=== PATIENT | female | born 1955 | race Caucasian/White ===

== ENCOUNTER 2016-12-07 10:46 | Outpatient (CLI) | payer OTHER | END 2016-12-07 10:47 | disposition home or self-care (01) | DX: Z12.31 Encounter for screening mammogram for malignant neoplasm of breast (principal) ==

== ENCOUNTER 2019-01-17 09:49 | Outpatient (CLI) | payer BC, OTHER ==
--- NOTE | 2019-01-18 09:08 | Mammography Report ---
Reason: ENCOUNTER FOR SCREENING MAMMOGRAM FOR MALIGNANT NE Procedure Date: 01/17/2019 Accession Number: [id number] / [id number] Procedure: [facility] - Screening Mammo w/Tyrel CPT Code: FULL RESULT: EXAM: Screening Mammo w/Ytrel DATE: 01/17/2019 10:13 AM CLINICAL HISTORY: Routine screening. No reported personal or family history of breast cancer. TECHNIQUE: Bilateral CC and MLO views were obtained. COMPARISON: 12/07/2016 through 02/26/2010 FINDINGS: The breasts demonstrate heterogeneously dense fibroglandular parenchyma bilaterally. Bilateral breasts: There are no suspicious masses, calcifications or areas of distortion. IMPRESSION: Negative examination RECOMMENDATION: Routine annual screening unless otherwise clinically indicated. BI-RADS CATEGORY 1: Negative STANDARD QUALIFYING STATEMENTS: 1. This examination was not reviewed with the aid of Computer-Aided Detection (CAD). 2. A negative or benign imaging report should not preclude biopsy if clinically suspicious findings are present. 3. Dense breasts may obscure an underlying neoplasm. 4. This examination was reviewed with the aid of 3D breast imaging (tomosynthesis).
== END 2019-01-17 09:50 | disposition home or self-care (01) ==
LOC: DI 09:49
PROVIDERS: ATTEND Internal Medicine
DX: Z12.31 Encounter for screening mammogram for malignant neoplasm of breast (principal)
CPT/HCPCS: 77063; 77067

== ENCOUNTER 2019-11-07 07:07 | Outpatient (CLI) | payer OTHER ==
[2019-11-07 10:42] LABS: THYROID STIMULATING HORMONE 2.37 uIU/mL (0.34-5.60)
[2019-11-07 10:47] LABS: FREE T4 (FREE THYROXINE) 0.82 ng/dL (0.58-1.64)
[2019-11-07 10:49] LABS: TOTAL T3 0.97 ng/mL (0.87-1.78)
[2019-11-07 11:11] LABS: FOLLICLE STIMULATING HORMONE 57.41 mIU/mL
== END 2019-11-07 07:08 | disposition home or self-care (01) ==
LOC: LAB.S 07:07
PROVIDERS: ATTEND Naturopath
DX: N95.1 Menopausal and female climacteric states (principal); Z79.899 Other long term (current) drug therapy
CPT/HCPCS: 36415; 82672; 83001; 84439; 84443; 84480; 84481